=== PATIENT | male | born 1970 | race Caucasian/White ===

== ENCOUNTER 2019-11-24 05:25 | Inpatient (IN) | payer SELFPAY ==
[2019-11-24] MEDS ORDERED: HYDROmorphone 1 MG/ML Syringe IVPUSH STA (05:58)
[2019-11-24] MEDS ORDERED: Ondansetron 4 MG/2 ML SDV IVPUSH ONE (05:58)
[2019-11-24] MEDS ORDERED: Sodium Chloride 0.9% 1,000 ML IV SCH (06:00)
--- NOTE | 2019-11-24 06:05 | EDM.PDOC ---
<Rivas Layne A - Last Filed: 11/24/19 09:17> ED HPI GENERAL MEDICAL PROBLEM - General Chief Complaint: Abdominal Pain Stated Complaint: ABDOMINAL PAIN Time Seen by Provider: 11/24/19 05:43 - Related Data Allergies Allergy/AdvReac Type Severity Reaction Status Date / Time No Known Allergies Allergy Verified 11/24/19 12:41 Home Meds: Home Meds . [No Known Home Meds] 11/24/19 [History] Course - Re-Assessments/Exams Free Text/Narrative Re-Assessment/Exam: 11/24/19 09:17 Dr Harris came to see the patient and he will admit him to the hospital. I have written some bridging orders. Departure - Departure Time of Disposition: :20 Disposition: Admitted As Inpatient 66 Condition: Good Clinical Impression: Retroperitoneal abscess - Discharge Information <Raciel Marshall - Last Filed: 11/24/19 19:36> ED HPI GENERAL MEDICAL PROBLEM - General Source of Information: Reports: Patient History Limitations: Reports: No Limitations - History of Present Illness INITIAL COMMENTS - FREE TEXT/NARRATIVE: Mr. Yanez is a very pleasant 49-year-old gentleman with a past medical history significant for non-Hodgkin lymphoma, initially diagnosed in 2003, status post chemotherapy up until 2005, but with no medical evaluation since, and chronic methamphetamine use, who now presents to the ED stating that he has had 6 months of mild left inguinal discomfort, which developed into a dull, crampy pain of much greater intensity 2 days ago, 11/22/2019. He states that he has had chills, but he has not had a fever. No associated nausea, vomiting, constipation, or diarrhea. His last bowel movement was last night. He reports having a slight cough, but denies having recent dyspnea, chest pain, or palpitations. No prior similar symptoms. Here in the ED, the patient's initial BP is found to be modestly elevated at 168/87, otherwise, he is hemodynamically stable, afebrile, saturating 96% on room air. Other than the above complaints, the patient denies having a recent fever, sore throat, ear pain, nasal or sinus congestion, dyspnea, chest pain, palpitations, nausea, vomiting, constipation, diarrhea, abdominal pain, urinary symptoms, recent weight gain or weight loss, recent bloody bowel movements or black bowel movements, recent joint aches, headaches, or rashes. The patient does not have a PCP. Past Medical History Musculoskeletal History: Reports: Fracture (left tibia) Oncologic (Cancer) History: Reports: Non-Hodgkin's Lymphoma (Dx'd 2003, s/p CTx until 2005, no eval after that) - Infectious Disease History Infectious Disease History: Reports: Hepatitis C (untreated) - Past Surgical History Oncologic Surgical History: Reports: Other (See Below) (Left inguinal LN bx) Social & Family History - Family History Cardiac: Reports: CAD - Tobacco Use Smoking Status *Q: Current Every Day Smoker Years of Tobacco use: 35 Packs/Tins Daily: 0.5 Packs/Tins Daily Comment: Down from 1 ppd - Alcohol Use Alcohol Use History: Yes Alcohol Use Frequency: Socially - Recreational Drug Use Recreational Drug Use: Yes Drug Use in Last 12 Months: Yes Recreational Drug Type: Reports: Cocaine (last smoked, injected 2017), LSD (Acid) (last took 2017), Marijuana/Hashish (last smoked 11/23/2019), Methamphetamine (smokes or injects daily), Psilocybin (Mushrooms) (last took 2017) - Living Situation & Occupation Living situation: Reports: , with Significant Other (Girlfriend) Occupation: Unemployed ED ROS GENERAL - Review of Systems Review Of Systems: Comprehensive ROS is negative, except as noted in HPI. ED EXAM, GI/ABD - Physical Exam Exam: See Below Exam Limited By: No Limitations General Appearance: Alert, WD/WN, Mild Distress (appears uncomfortable) Eyes: Bilateral: Normal Appearance, EOMI Ears: Normal External Exam, Hearing Grossly Normal Nose: Normal Inspection Throat/Mouth: Normal Inspection, Normal Lips, Normal Voice, No Airway Compromise Head: Atraumatic, Normocephalic Neck: Normal Inspection, Full Range of Motion Respiratory/Chest: No Respiratory Distress, Lungs Clear, Normal Breath Sounds, No Accessory Muscle Use Cardiovascular: Normal Peripheral Pulses, Regular Rate, Rhythm, No Edema, No Gallop, No JVD, No Murmur, No Rub GI/Abdominal Exam: Normal Bowel Sounds, Soft, No Organomegaly, No Distention, No Abnormal Bruit, No Mass, Tender (Pain is induced in the left lower quadrant with palpation anywhere in his abdomen, but his left lower quadrant is particularly tender to palpation) (Male) Exam: No: Hernia, Inguinal Lymphadenopathy Rectal (Males) Exam: Deferred Back Exam: Normal Inspection, Full Range of Motion, NT Extremities: Normal Inspection, Normal Range of Motion, No Pedal Edema, Normal Capillary Refill Neurological: Alert, Oriented, Normal Cognition, No Motor/Sensory Deficits Psychiatric: Normal Affect Skin Exam: Warm, Dry, Intact, Normal Color, No Rash Course - Vital Signs Last Recorded V/S: Last Vital Signs Temp 36.9 C 11/24/19 16:38 Pulse 78 11/24/19 16:38 Resp 18 11/24/19 16:38 BP 114/73 11/24/19 16:38 Pulse Ox 98 11/24/19 16:38 - Orders/Labs/Meds Orders: Active Orders 24 hr Category Date Time Status Abdomen Pelvis w Cont [CT] Stat Exams 11/24/19 05:59 Taken Medication Orders Hydrocodone Bitart/Acetaminophen (Conrad 325-5 Mg) 1 - 2 tab PO Q6H PRN PRN Reason: Pain Last Admin: 11/24/19 12:52 Dose: 2 tab Documented by: BOOKER Lactated Ringer's (Ringers, Lactated) 1,000 mls @ 75 mls/hr IV ASDIRECTED [facility] Last Admin: 11/24/19 13:34 Dose: 75 mls/hr Documented by: BOOKER Piperacillin Sod/Tazobactam (Sod 4.5 gm/ Sodium Chloride) 100 mls @ 25 mls/hr IV Q8H DHEERAJ Vancomycin HCl 1.5 gm/ Sodium (Chloride) 500 mls @ 250 mls/hr IV Q12H [facility] Last Admin: 11/24/19 15:08 Dose: 250 mls/hr Documented by: DANK Ondansetron HCl (Zofran) 4 mg IVPUSH Q6H PRN PRN Reason: Nausea/Vomiting Vancomycin HCl (Pharmacy To Dose - Vancomycin) 1 dose .XX Q12HR [facility] Labs: Laboratory Tests 11/24/19 11/24/19 11/24/19 Range/Units 05:45 05:45 06:19 WBC 17.93 H (4.23-9.07) K/mm3 RBC 4.75 (4.63-6.08) M/mm3 Hgb 15.4 (13.7-17.5) gm/dl Hct 45.0 (40.1-51.0) % MCV 94.7 H (79.0-92.2) fl MCH 32.4 H (25.7-32.2) pg MCHC 34.2 (32.2-35.5) g/dl RDW Std Deviation 41.7 (35.1-43.9) fL Plt Count 249 (163-337) K/mm3 MPV 9.7 (9.4-12.3) fl Neutrophils % (Manual) 74 H (40-60) % Band Neutrophils % 0 (0-10) % Lymphocytes % (Manual) 13 L (20-40) % Atypical Lymphs % 1 % Monocytes % (Manual) 7 (2-10) % Eosinophils % (Manual) 5 (0.8-7.0) % Basophils % (Manual) 0 L (0.2-1.2) Platelet Estimate Adequate Anisocytosis 1+ slight RBC Morph Comment Abnormal Sodium 129 L D (136-145) mEq/L Potassium 4.1 (3.5-5.1) mEq/L Chloride 95 L (98-107) mEq/L Carbon Dioxide 25 (21-32) mEq/L Anion Gap 13.1 (5-15) BUN 12 (7-18) mg/dL Creatinine 1.0 (0.7-1.3) mg/dL Est Cr Clr Drug Dosing 105.63 mL/min Estimated GFR (MDRD) > 60 (>60) mL/min BUN/Creatinine Ratio 12.0 L (14-18) Glucose 216 H (74-106) mg/dL Calcium 9.3 (8.5-10.1) mg/dL Total Bilirubin 0.5 (0.2-1.0) mg/dL AST 22 (15-37) U/L ALT 72 H (16-63) U/L Alkaline Phosphatase 72 (46-116) U/L Total Protein 7.6 (6.4-8.2) g/dl Albumin 3.2 L (3.4-5.0) g/dl Globulin 4.4 gm/dL Albumin/Globulin Ratio 0.7 L (1-2) Urine Color (Yellow) Urine Appearance (Clear) Urine pH (5.0-8.0) Ur Specific [place] (1.005-1.030) Urine Protein (Negative) Urine Glucose (UA) (Negative) Urine Ketones (Negative) Urine Occult Blood (Negative) Urine Nitrite (Negative) Urine Bilirubin (Negative) Urine Urobilinogen (0.2-1.0) Ur Leukocyte Esterase (Negative) Urine RBC (0-5) /hpf Urine WBC (0-5) /hpf Ur Squamous Epith Cells (0-5) /hpf Urine Bacteria (FEW) /hpf Urine Mucus (FEW) /hpf COVID-19 (TOMMY) Negative (NEGATIVE) 11/24/19 Range/Units 07:20 WBC (4.23-9.07) K/mm3 RBC (4.63-6.08) M/mm3 Hgb (13.7-17.5) gm/dl Hct (40.1-51.0) % MCV (79.0-92.2) fl MCH (25.7-32.2) pg MCHC (32.2-35.5) g/dl RDW Std Deviation (35.1-43.9) fL Plt Count (163-337) K/mm3 MPV (9.4-12.3) fl Neutrophils % (Manual) (40-60) % Band Neutrophils % (0-10) % Lymphocytes % (Manual) (20-40) % Atypical Lymphs % % Monocytes % (Manual) (2-10) % Eosinophils % (Manual) (0.8-7.0) % Basophils % (Manual) (0.2-1.2) Platelet Estimate Anisocytosis RBC Morph Comment Sodium (136-145) mEq/L Potassium (3.5-5.1) mEq/L Chloride (98-107) mEq/L Carbon Dioxide (21-32) mEq/L Anion Gap (5-15) BUN (7-18) mg/dL Creatinine (0.7-1.3) mg/dL Est Cr Clr Drug Dosing mL/min Estimated GFR (MDRD) (>60) mL/min BUN/Creatinine Ratio (14-18) Glucose (74-106) mg/dL Calcium (8.5-10.1) mg/dL Total Bilirubin (0.2-1.0) mg/dL AST (15-37) U/L ALT (16-63) U/L Alkaline Phosphatase (46-116) U/L Total Protein (6.4-8.2) g/dl Albumin (3.4-5.0) g/dl Globulin gm/dL Albumin/Globulin Ratio (1-2) Urine Color Yellow (Yellow) Urine Appearance Clear (Clear) Urine pH 8.5 H (5.0-8.0) Ur Specific [place] 1.015 (1.005-1.030) Urine Protein Negative (Negative) Urine Glucose (UA) Negative (Negative) Urine Ketones Negative (Negative) Urine Occult Blood Negative (Negative) Urine Nitrite Negative (Negative) Urine Bilirubin Negative (Negative) Urine Urobilinogen 1.0 (0.2-1.0) Ur Leukocyte Esterase Negative (Negative) Urine RBC 0-5 (0-5) /hpf Urine WBC 0-5 (0-5) /hpf Ur Squamous Epith Cells 0-5 (0-5) /hpf Urine Bacteria Few (FEW) /hpf Urine Mucus Few (FEW) /hpf COVID-19 (TOMMY) (NEGATIVE) Meds: Medications Generic Name Dose Route Start Last Admin Trade Name Freq PRN Reason Stop Dose Admin Hydrocodone Bitart/Acetaminophen 1 - 2 tab 11/24/19 12:31 11/24/19 12:52 Conrad 325-5 Mg PO 2 tab Q6H PRN Administration Pain Lactated Ringer's 1,000 mls @ 75 mls/hr 11/24/19 12:30 11/24/19 13:34 Ringers, Lactated IV 75 mls/hr ASDIRECTED DHEERAJ Administration Piperacillin Sod/Tazobactam 100 mls @ 25 mls/hr 11/24/19 21:00 Sod 4.5 gm/ Sodium Chloride IV Q8H DHEERAJ Vancomycin HCl 1.5 gm/ Sodium 500 mls @ 250 mls/hr 11/24/19 13:00 11/24/19 15:08 Chloride IV 250 mls/hr Q12H DHEERAJ Administration Ondansetron HCl 4 mg 11/24/19 12:26 Zofran IVPUSH Q6H PRN Nausea/Vomiting Vancomycin HCl 1 dose 11/24/19 21:00 Pharmacy To Dose - Vancomycin .XX Q12HR DHEERAJ Discontinued Medications Generic Name Dose Route Start Last Admin Trade Name Freq PRN Reason Stop Dose Admin Diatrizoate Meglum/Diatrizoate Sod 120 ml 11/24/19 06:46 11/24/19 07:09 Gastrografin 37% PO 11/24/19 06:47 120 ml ONETIME ONE Administration Hydromorphone HCl 0.5 mg 11/24/19 05:58 11/24/19 06:14 Dilaudid IVPUSH 11/24/19 05:59 0.5 mg ONETIME STA Administration Hydromorphone HCl 0.5 mg 11/24/19 09:14 11/24/19 09:23 Dilaudid IVPUSH 11/24/19 09:15 0.5 mg ONETIME ONE Administration Sodium Chloride 1,000 mls @ 150 mls/hr 11/24/19 06:00 11/24/19 06:14 Normal Saline IV 150 mls/hr ASDIRECTED DHEERAJ Administration Piperacillin Sod/Tazobactam 100 mls @ 200 mls/hr 11/24/19 13:00 11/24/19 12:53 Sod 4.5 gm/ Sodium Chloride IV 11/24/19 13:29 200 mls/hr ONETIME ONE Administration Iopamidol 100 ml 11/24/19 06:46 11/24/19 07:09 Isovue-300 (61%) IVPUSH 11/24/19 06:47 100 ml ONETIME ONE Administration Ondansetron HCl 4 mg 11/24/19 05:58 11/24/19 06:15 Zofran IVPUSH 11/24/19 05:59 4 mg ONETIME ONE Administration Sodium Chloride 10 ml 11/24/19 06:46 11/24/19 07:09 Saline Flush FLUSH 11/24/19 06:47 10 ml ONETIME ONE Administration - Re-Assessments/Exams Free Text/Narrative Re-Assessment/Exam: 11/24/19 06:00 As above, the patient has had mild left inguinal discomfort for the past 6 months, which developed into a dull, crampy pain 2 days ago. His pain is made better or worse depending on his position. While he generally feels ill, he denies any other specific symptoms, such as nausea, vomiting, constipation, diarrhea, or urinary symptoms. He is afebrile. On examination, pain is felt in his left lower quadrant with palpation anywhere on his abdomen, and he has considerable tenderness to palpation of the left lower quadrant itself. I do not appreciate an inguinal hernia. I have ordered a work-up that includes blood work, a urinalysis, and a CT scan of the abdomen and pelvis with oral and IV contrast. Lastly, because COVID-19 can present in such a myriad of different ways, including abdominal pain, and because the patient does not practice any sort of precautionary measures, I have ordered a test for the SARS-CoV-2 virus. In the meantime, the patient will be given IV Dilaudid, IV Zofran, and IV fluid. 11/24/19 07:25 The patient's CBC is remarkable for WBC count elevated at 17.93, but with 0% bandemia. The remainder of his CBC is unremarkable. His CMP is remarkable for a sodium depressed at 129, and a blood glucose elevated at 216. His ALT is mildly elevated at 72, but with an AST normal at 22, and the remainder of his CMP being unremarkable. His test for the SARS-CoV-[address] of the abdomen and pelvis with oral and IV contrast is read by [facility] as "Thick-walled retroperitoneal fluid collection over the anteromedial aspect of the left psoas muscle with surrounding fatty stranding, suggestive of abscess." The patient has not yet provided a urine sample for the urinalysis. 11/24/19 07:[address] Harris at 07:28. He feels that the patient may require IR, however, the infection may be able to be treated with antibiotics alone. He will come by the ED to review the CT scan before making a decision if the patient needs to be transferred or not. 11/24/19 08:35 Dr. Harris has not yet come to the ED. I will turn the patient over to Dr. Layne, for change of shift and determination of disposition. Departure - Discharge Information *PRESCRIPTION DRUG MONITORING PROGRAM REVIEWED*: Not Applicable *COPY OF PRESCRIPTION DRUG MONITORING REPORT IN PATIENT NIRAJ: Not Applicable Sepsis Event Note (ED) - Evaluation Sepsis Screening Result: No Definite Risk - My Orders Last 24 Hours: My Active Orders 11/24/19 05:59 Abdomen Pelvis w Cont [CT] Stat - Assessment/Plan Last 24 Hours: My Active Orders 11/24/19 05:59 Abdomen Pelvis w Cont [CT] Stat
[2019-11-24] MEDS ORDERED: Sodium Chloride 0.9% 10 ML Syringe FLUSH ONE (06:46)
[2019-11-24] MEDS ORDERED: Diatrizoate Meglumine/Diatrizoate Sodium 37% 120 ML Bottle PO ONE (06:46)
[2019-11-24] MEDS ORDERED: Iopamidol 612 MG/ML 100 ML Bottle IVPUSH ONE (06:46)
[2019-11-24] MEDS ORDERED: HYDROmorphone 0.5 MG/0.5 ML Syringe IVPUSH ONE (09:14)
--- NOTE | 2019-11-24 12:09 | PCM.HP.2 ---
H&P History of Present Illness - General Date of Service: 11/24/19 Admit Problem/Dx: Admission Diagnosis/Problem Admission Diagnosis/Problem Retroperitoneal abscess Source of Information: Patient History Limitations: Reports: No Limitations - History of Present Illness Initial Comments - Free Text/Narative: Patient has a history of NHL treated from [id number] but never followed up who presented to the ED with 2 days of left inguinal pain. Patient report feeling a small bump in the left inguina area for 6 months but 2 days ago the pain started, The pain became severe and he presented to the ED. He reports that he has had some night sweats and chills during this time. He is a prior IV drug user with Meth but reports that he stopped injecting 2 yrs ago. Now he smokes ma rijuana and meth daily, last smoked yesterday. He smokes 1/2 PPD, he reports that he used to he a heavy drinker but stopped drinking 3 weeks ago. Last drink was 2 weeks ago. In the ED he was found to have WHC of 17, Ct scan revealed 2x2x5 abscess in the left psoas. My review of CT also reveals enlarged lymph nodes left greater than right. No obvious hernias. Onset of Symptoms: Reports: Gradual Duration of Symptoms: Reports: Day(s): Location: Reports: Abdomen Quality: Reports: Sharp Severity: Severe Improves with: Reports: Immobilization Worsens with: Reports: Movement Associated Symptoms: Reports: Fever/Chills - Related Data Allergies/Adverse Reactions: Allergies Allergy/AdvReac Type Severity Reaction Status Date / Time No Known Allergies Allergy Verified 11/24/19 09:11 Home Medications: Home Meds . [No Known Home Meds] 11/24/19 [History] Past Medical History Musculoskeletal History: Reports: Fracture Oncologic (Cancer) History: Reports: Non-Hodgkin's Lymphoma Other Oncologic History: lymph node removed from [place] for biopsy-pt states it came back "positive-for the nonhodgkin lymphoma" - Infectious Disease History Infectious Disease History: Reports: Hepatitis C - Past Surgical History Endocrine Surgical History: Reports: Other (See Below) Oncologic Surgical History: Reports: Other (See Below) Social & Family History - Family History Family Medical History: Noncontributory Cardiac: Reports: CAD - Tobacco Use Smoking Status *Q: Current Every Day Smoker Years of Tobacco use: 35 Packs/Tins Daily: 0.5 - Caffeine Use Caffeine Use: Reports: Coffee, Tea - Recreational Drug Use Recreational Drug Use: Yes Drug Use in Last 12 Months: Yes Recreational Drug Type: Reports: Marijuana/Hashish, Methamphetamine, Other (see below) Other Recreational Drug Type: hallucinogens Recreational Drug Use Frequency: Daily Recreational Drug Last Use: yesterday - Living Situation & Occupation Living situation: Reports: , with Significant Other (Girlfriend) Occupation: Unemployed H&P Review of Systems - Review of Systems: Review Of Systems: See Below General: Reports: Fever, Chills HEENT: Reports: No Symptoms Pulmonary: Reports: No Symptoms Cardiovascular: Reports: No Symptoms Gastrointestinal: Reports: Abdominal Pain (left inguinal) Genitourinary: Reports: No Symptoms Musculoskeletal: Reports: Leg Pain (left leg pain at hip with active movement) Skin: Reports: No Symptoms Psychiatric: Reports: No Symptoms Exam - Exam Exam: See Below - Vital Signs Vital Signs: Last Vital Signs Temp 98.3 F 11/24/19 05:35 Pulse 81 11/24/19 11:30 Resp 18 11/24/19 11:30 BP 130/80 11/24/19 11:30 Pulse Ox 96 11/24/19 11:30 Weight: 90.038 kg - Exam General: Alert, Oriented, Cooperative Neck: Supple Lungs: Clear to Auscultation, Normal Respiratory Effort Cardiovascular: Regular Rate, Regular Rhythm, Normal S1, Normal S2 GI/Abdominal Exam: Soft, No Organomegaly, No Distention, No Abnormal Bruit, Tender (left inguinal area, there are palpable, tender, mobile subcutaneous structures likely lymph nodes) (Male) Exam: No Hernia Back Exam: Normal Inspection, Full Range of Motion, Other (mild bilateral flank tenderness) - Patient Data Lab Results Last 24 hrs: Laboratory Results - last 24 hr 11/24/19 11/24/19 11/24/19 Range/Units 05:45 05:45 06:19 WBC 17.93 H (4.23-9.07) K/mm3 RBC 4.75 (4.63-6.08) M/mm3 Hgb 15.4 (13.7-17.5) gm/dl Hct 45.0 (40.1-51.0) % MCV 94.7 H (79.0-92.2) fl MCH 32.4 H (25.7-32.2) pg MCHC 34.2 (32.2-35.5) g/dl RDW Std Deviation 41.7 (35.1-43.9) fL Plt Count 249 (163-337) K/mm3 MPV 9.7 (9.4-12.3) fl Neutrophils % (Manual) 74 H (40-60) % Band Neutrophils % 0 (0-10) % Lymphocytes % (Manual) 13 L (20-40) % Atypical Lymphs % 1 % Monocytes % (Manual) 7 (2-10) % Eosinophils % (Manual) 5 (0.8-7.0) % Basophils % (Manual) 0 L (0.2-1.2) Platelet Estimate Adequate Anisocytosis 1+ slight RBC Morph Comment Abnormal Sodium 129 L D (136-145) mEq/L Potassium 4.1 (3.5-5.1) mEq/L Chloride 95 L (98-107) mEq/L Carbon Dioxide 25 (21-32) mEq/L Anion Gap 13.1 (5-15) BUN 12 (7-18) mg/dL Creatinine 1.0 (0.7-1.3) mg/dL Est Cr Clr Drug Dosing 105.63 mL/min Estimated GFR (MDRD) > 60 (>60) mL/min BUN/Creatinine Ratio 12.0 L (14-18) Glucose 216 H (74-106) mg/dL Calcium 9.3 (8.5-10.1) mg/dL Total Bilirubin 0.5 (0.2-1.0) mg/dL AST 22 (15-37) U/L ALT 72 H (16-63) U/L Alkaline Phosphatase 72 (46-116) U/L Total Protein 7.6 (6.4-8.2) g/dl Albumin 3.2 L (3.4-5.0) g/dl Globulin 4.4 gm/dL Albumin/Globulin Ratio 0.7 L (1-2) Urine Color (Yellow) Urine Appearance (Clear) Urine pH (5.0-8.0) Ur Specific [place] (1.005-1.030) Urine Protein (Negative) Urine Glucose (UA) (Negative) Urine Ketones (Negative) Urine Occult Blood (Negative) Urine Nitrite (Negative) Urine Bilirubin (Negative) Urine Urobilinogen (0.2-1.0) Ur Leukocyte Esterase (Negative) Urine RBC (0-5) /hpf Urine WBC (0-5) /hpf Ur Squamous Epith Cells (0-5) /hpf Urine Bacteria (FEW) /hpf Urine Mucus (FEW) /hpf COVID-19 (TOMMY) Negative (NEGATIVE) 11/24/19 Range/Units 07:20 WBC (4.23-9.07) K/mm3 RBC (4.63-6.08) M/mm3 Hgb (13.7-17.5) gm/dl Hct (40.1-51.0) % MCV (79.0-92.2) fl MCH (25.7-32.2) pg MCHC (32.2-35.5) g/dl RDW Std Deviation (35.1-43.9) fL Plt Count (163-337) K/mm3 MPV (9.4-12.3) fl Neutrophils % (Manual) (40-60) % Band Neutrophils % (0-10) % Lymphocytes % (Manual) (20-40) % Atypical Lymphs % % Monocytes % (Manual) (2-10) % Eosinophils % (Manual) (0.8-7.0) % Basophils % (Manual) (0.2-1.2) Platelet Estimate Anisocytosis RBC Morph Comment Sodium (136-145) mEq/L Potassium (3.5-5.1) mEq/L Chloride (98-107) mEq/L Carbon Dioxide (21-32) mEq/L Anion Gap (5-15) BUN (7-18) mg/dL Creatinine (0.7-1.3) mg/dL Est Cr Clr Drug Dosing mL/min Estimated GFR (MDRD) (>60) mL/min BUN/Creatinine Ratio (14-18) Glucose (74-106) mg/dL Calcium (8.5-10.1) mg/dL Total Bilirubin (0.2-1.0) mg/dL AST (15-37) U/L ALT (16-63) U/L Alkaline Phosphatase (46-116) U/L Total Protein (6.4-8.2) g/dl Albumin (3.4-5.0) g/dl Globulin gm/dL Albumin/Globulin Ratio (1-2) Urine Color Yellow (Yellow) Urine Appearance Clear (Clear) Urine pH 8.5 H (5.0-8.0) Ur Specific [place] 1.015 (1.005-1.030) Urine Protein Negative (Negative) Urine Glucose (UA) Negative (Negative) Urine Ketones Negative (Negative) Urine Occult Blood Negative (Negative) Urine Nitrite Negative (Negative) Urine Bilirubin Negative (Negative) Urine Urobilinogen 1.0 (0.2-1.0) Ur Leukocyte Esterase Negative (Negative) Urine RBC 0-5 (0-5) /hpf Urine WBC 0-5 (0-5) /hpf Ur Squamous Epith Cells 0-5 (0-5) /hpf Urine Bacteria Few (FEW) /hpf Urine Mucus Few (FEW) /hpf COVID-19 (TOMMY) (NEGATIVE) Result Diagrams: 11/24/19 05:45 11/24/19 05:45 Sepsis Event Note - Evaluation Sepsis Screening Result: No Definite Risk - Focused Exam Vital Signs: Vital Signs Temp Pulse Resp BP Pulse Ox 11/24/19 11:30 81 18 130/80 96 11/24/19 05:35 98.3 F 94 16 168/87 H 96 Problem List Initiated/Reviewed/Updated: No Orders Last 24hrs: Active Orders 24 hr Category Date Time Status Admission Status [Patient Status] [ADT] Routine ADT 11/24/19 11:03 Active Abdomen Pelvis w Cont [CT] Stat Exams 11/24/19 05:59 Taken Sodium Chloride 0.9% [Normal Saline] 1,000 ml Med 11/24/19 06:00 Active IV ASDIRECTED Medication Orders Sodium Chloride (Normal Saline) 1,000 mls @ 150 mls/hr IV ASDIRECTED DHEERAJ Last Admin: 11/24/19 06:14 Dose: 150 mls/hr Documented by: WILBER Assessment/Plan Comment:: Patient has an RP abscess. Also has enlarged tender left inguinal structures likely lymph nodes. Unclear is these enlarged lymph nodes are related to the left psoas abscess. We will treat the abscess with abx and follow him clinically - Admit to med/surg - IV Vanc and Zosyn - Blood cultures - Daily labs - Reg diet - IVF at 75 cc/hr - Pain control with [place]
[2019-11-24] MEDS ORDERED: Ondansetron 4 MG/2 ML SDV IVPUSH PRN (12:26)
[2019-11-24] MEDS: Acetaminophen/HYDROcodone 325-5 MG Tab PO PRN ×2 (12:52→20:18)
[2019-11-24] MEDS ORDERED: Piperacillin/Tazobactam 4.5 GM in Sodium Chloride 0.9% 100 ML IV ONE (13:00)
[2019-11-24] MEDS: Lactated Ringers 1,000 ML IV SCH (13:34)
[2019-11-24] MEDS: Vancomycin 1.5 GM in Sodium Chloride 0.9% 500 ML IV SCH (15:08)
[2019-11-24] MEDS: Piperacillin/Tazobactam 4.5 GM in Sodium Chloride 0.9% 100 ML IV SCH (20:46)
[2019-11-25] MEDS: Vancomycin 1.5 GM in Sodium Chloride 0.9% 500 ML IV SCH (01:02)
[2019-11-25] MEDS: Lactated Ringers 1,000 ML IV SCH (03:00)
[2019-11-25] MEDS: Acetaminophen/HYDROcodone 325-5 MG Tab PO PRN ×3 (03:00→18:13)
[2019-11-25] MEDS: Piperacillin/Tazobactam 4.5 GM in Sodium Chloride 0.9% 100 ML IV SCH ×3 (05:09→20:34)
[2019-11-25] MEDS: Vancomycin 1 GM, Vancomycin 500 MG in Sodium Chloride 0.9% 500 ML IV SCH ×2 (10:32→17:31)
[2019-11-25] MEDS: Enoxaparin 30 MG/0.3 ML Syringe SUBCUT SCH ×2 (10:54→20:35)
--- NOTE | 2019-11-25 11:22 | CT ---
CT abdomen and pelvis Technique: Multiple axial sections were obtained from above the dome of the diaphragm inferiorly through the pubic symphysis. Delayed images were obtained through the bladder. Reconstructed coronal and sagittal images were obtained. Comparison: No prior CT abdomen or pelvis study is available. Findings: Very slight atelectasis is seen posteriorly within both lung bases. Liver contains no focal parenchymal abnormality. Spleen appears within normal limits. Adrenal glands show no nodule. Pancreas shows no discrete abnormality. Gallbladder contains no calcified gallstones. Kidneys show symmetric contrast enhancement without hydronephrosis or mass. Aorta shows atherosclerotic calcification without aneurysm. No pelvic mass or adenopathy is seen. Appendix is seen which is normal. 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 These appeared to join at the UVJ. No ureteral dilatation is seen. Contrast is noted within the bladder. Low density tubular structure identified within the retroperitoneum. This has craniocaudal length of 5.3 cm with transverse measurement of approximately 2.5 cm and maximum AP dimension of about 2.1 cm. Bone window settings were reviewed. Mild degenerative change is noted within the spine. No acute osseous finding is appreciated. Impression: 1. Tubular low density structure within left side of the retroperitoneum. Tubular structure makes raises the question of thrombophlebitis within the gonadal vein. Other nonspecific retroperitoneal abscess is possible. 2. No other acute finding is seen on CT study of the abdomen and pelvis. Diagnostic code #5 This report was dictated in MDT I agree with preliminary report from [facility], finalized on 11/24/19, 8:20 AM Central Daylight Time
--- NOTE | 2019-11-25 11:22 | PCM.PN ---
- General Info Date of Service: 11/25/19 Admission Dx/Problem (Free Text): Admission Diagnosis/Problem Admission Diagnosis/Problem Retroperitoneal abscess Subjective Update: Patient feels better today. No fevers or chills. He feels like the inguinal pain is starting to improve a bit. He is tolerating diet. Functional Status: Reports: Pain Controlled, Tolerating Diet, Ambulating, Urinating - Review of Systems General: Reports: No Symptoms HEENT: Reports: No Symptoms Pulmonary: Reports: No Symptoms Cardiovascular: Reports: No Symptoms Gastrointestinal: Reports: No Symptoms (inguinal), Abdominal Pain Genitourinary: Reports: No Symptoms Musculoskeletal: Reports: No Symptoms Skin: Reports: No Symptoms Neurological: Reports: No Symptoms - Patient Data Vitals - Most Recent: Last Vital Signs Temp 99.0 F 11/25/19 05:15 Pulse 75 11/25/19 05:15 Resp 16 11/25/19 05:15 BP 133/66 11/25/19 05:15 Pulse Ox 95 11/25/19 05:15 Weight - Most Recent: 90.855 kg I&O - Last 24 Hours: Intake & Output 11/24/19 11/25/19 11/25/19 22:59 06:59 14:59 Intake Total 1940 2141 Output Total 900 Balance 1040 2141 Lab Results Last 24 Hours: Laboratory Results - last 24 hr 11/25/19 11/25/19 Range/Units 04:10 04:10 WBC 15.96 H (4.23-9.07) K/mm3 RBC 4.45 L (4.63-6.08) M/mm3 Hgb 14.3 (13.7-17.5) gm/dl Hct 42.9 (40.1-51.0) % MCV 96.4 H (79.0-92.2) fl MCH 32.1 (25.7-32.2) pg MCHC 33.3 (32.2-35.5) g/dl RDW Std Deviation 42.5 (35.1-43.9) fL Plt Count 227 (163-337) K/mm3 MPV 9.7 (9.4-12.3) fl Neut % (Auto) 76.7 H (34.0-67.9) % Lymph % (Auto) 10.2 L (21.8-53.1) % [place] % (Auto) 10.6 (5.3-12.2) % Eos % (Auto) 2.1 (0.8-7.0) Baso % (Auto) 0.1 (0.1-1.2) % Neut # (Auto) 12.24 H (1.78-5.38) K/mm3 Lymph # (Auto) 1.63 (1.32-3.57) K/mm3 [place] # (Auto) 1.69 H (0.30-0.82) K/mm3 Eos # (Auto) 0.33 (0.04-0.54) K/mm3 Baso # (Auto) 0.02 (0.01-0.08) K/mm3 Manual Slide Review Normal smear Sodium 131 L (136-145) mEq/L Potassium 4.3 (3.5-5.1) mEq/L Chloride 99 (98-107) mEq/L Carbon Dioxide 27 (21-32) mEq/L Anion Gap 9.3 (5-15) BUN 12 (7-18) mg/dL Creatinine 0.9 (0.7-1.3) mg/dL Est Cr Clr Drug Dosing 117.36 mL/min Estimated GFR (MDRD) > 60 (>60) mL/min BUN/Creatinine Ratio 13.3 L (14-18) Glucose 121 H (74-106) mg/dL Calcium 8.7 (8.5-10.1) mg/dL Med Orders - Current: Current Medications Hydrocodone Bitart/Acetaminophen ([place] 325-5 Mg) 1 - 2 tab PO Q6H PRN PRN Reason: Pain Last Admin: 11/25/19 09:11 Dose: 2 tab Documented by: Enoxaparin Sodium (Lovenox) 30 mg SUBCUT Q12HR [facility] Last Admin: 11/25/19 10:54 Dose: 30 mg Documented by: Piperacillin Sod/Tazobactam (Sod 4.5 gm/ Sodium Chloride) 100 mls @ 25 mls/hr IV Q8H [facility] Last Admin: 11/25/19 05:09 Dose: 25 mls/hr Documented by: Vancomycin HCl 1 gm/Vancomycin HCl 500 mg/ Sodium Chloride 500 mls @ 333 mls/hr IV Q8H [facility] Last Admin: 11/25/19 10:32 Dose: 333 mls/hr Documented by: Ondansetron HCl (Zofran) 4 mg IVPUSH Q6H PRN PRN Reason: Nausea/Vomiting Vancomycin HCl (Pharmacy To Dose - Vancomycin) 0 dose .XX ASDIRECTED PRN PRN Reason: RX TO DOSE VANCOMYCIN Discontinued Medications Diatrizoate Meglum/Diatrizoate Sod (Gastrografin 37%) 120 ml PO ONETIME ONE Stop: 11/24/19 06:47 Last Admin: 11/24/19 07:09 Dose: 120 ml Documented by: Hydromorphone HCl (Dilaudid) 0.5 mg IVPUSH ONETIME STA Stop: 11/24/19 05:59 Last Admin: 11/24/19 06:14 Dose: 0.5 mg Documented by: Hydromorphone HCl (Dilaudid) 0.5 mg IVPUSH ONETIME ONE Stop: 11/24/19 09:15 Last Admin: 11/24/19 09:23 Dose: 0.5 mg Documented by: Sodium Chloride (Normal Saline) 1,000 mls @ [facility] Last Admin: 11/24/19 06:14 Dose: 150 mls/hr Documented by: Lactated Ringer's (Ringers, Lactated) 1,000 mls [facility] Last Admin: 11/25/19 03:00 Dose: 75 mls/hr Documented by: Piperacillin Sod/Tazobactam (Sod 4.5 gm/ Sodium Chloride) 100 mls @ 200 mls/hr IV ONETIME ONE Stop: 11/24/19 13:29 Last Admin: 11/24/19 12:53 Dose: 200 mls/hr Documented by: Vancomycin HCl 1.5 gm/ Sodium (Chloride) 500 mls @ 250 mls/hr IV Q12H [facility] Last Admin: 11/25/19 01:02 Dose: 250 mls/hr Documented by: Iopamidol (Isovue-300 (61%)) 100 ml IVPUSH ONETIME ONE Stop: 11/24/19 06:47 Last Admin: 11/24/19 07:09 Dose: 100 ml Documented by: Ondansetron HCl (Zofran) 4 mg IVPUSH ONETIME ONE Stop: 11/24/19 05:59 Last Admin: 11/24/19 06:15 Dose: 4 mg Documented by: Sodium Chloride (Saline Flush) 10 ml FLUSH ONETIME ONE Stop: 11/24/19 06:47 Last Admin: 11/24/19 07:09 Dose: 10 ml Documented by: - Exam General: Alert, Oriented, Cooperative Lungs: Clear to Auscultation, Normal Respiratory Effort Cardiovascular: Regular Rate, Regular Rhythm, No Murmurs GI/Abdominal Exam: Soft, No Organomegaly, No Distention, No Abnormal Bruit, No Mass, Tender (left inguinal area) Sepsis Event Note - Evaluation Sepsis Screening Result: No Definite Risk - Focused Exam Vital Signs: Vital Signs Temp Pulse Resp BP Pulse Ox 11/25/19 05:15 99.0 F 75 16 133/66 95 11/25/19 00:35 98.2 F 70 18 126/75 95 - Problem List Review Problem List Initiated/Reviewed/Updated: No - My Orders Last 24 Hours: My Active Orders 11/24/19 12:15 Blood Culture x2 Reflex Set [OM.PC] Stat 11/24/19 12:34 CULTURE BLOOD [BC] Stat 11/24/19 12:41 CULTURE BLOOD [BC] Stat 11/24/19 Dinner Regular Diet [DIET] 11/24/19 20:08 Code Status [Resuscitation Status] Routine 11/25/19 10:42 Antiembolic Devices [RC] PER UNIT ROUTINE Heat Therapy [OM.PC] Routine SCD [Sequential Compression Device] [OM.PC] Routine 11/25/19 10:45 Enoxaparin [Lovenox] 30 mg SUBCUT Q12HR - Assessment Assessment:: Patient has left RP abscess and tender lymph nodes in the left inguinal area - Plan Plan:: Patient has an RP abscess. Also has enlarged tender left inguinal structures likely lymph nodes. Unclear is these enlarged lymph nodes are related to the le ft psoas abscess. We will treat the abscess with abx and follow him clinically - COntinue IV Vanc and Zosyn - Blood cultures done, awaiting results - Daily labs - Reg diet - Hep well - Lovenox for DVT ppx - Pain control with [place] - Warm compresses to the left inguinal area to help with tenderness
[2019-11-26] MEDS: Acetaminophen/HYDROcodone 325-5 MG Tab PO PRN ×4 (00:37→19:15)
[2019-11-26] MEDS: Vancomycin 1 GM, Vancomycin 500 MG in Sodium Chloride 0.9% 500 ML IV SCH ×3 (03:07→19:15)
[2019-11-26] MEDS: Piperacillin/Tazobactam 4.5 GM in Sodium Chloride 0.9% 100 ML IV SCH ×3 (04:44→21:57)
[2019-11-26] MEDS: Enoxaparin 30 MG/0.3 ML Syringe SUBCUT SCH ×2 (09:19→22:01)
--- NOTE | 2019-11-26 10:44 | PCM.PN ---
- General Info Date of Service: 11/26/19 Admission Dx/Problem (Free Text): Admission Diagnosis/Problem Admission Diagnosis/Problem Retroperitoneal abscess Subjective Update: Patient is itching and anxious today. Wants to get out of the hospital to get "fresh air". His left inguinal pain is much improved. He reports that he feels claustrophobic. No fevers or chills. Functional Status: Reports: Pain Controlled, Tolerating Diet, Ambulating, Urinating - Review of Systems General: Reports: No Symptoms HEENT: Reports: No Symptoms Pulmonary: Reports: No Symptoms Cardiovascular: Reports: No Symptoms Gastrointestinal: Reports: Abdominal Pain Genitourinary: Reports: No Symptoms Musculoskeletal: Reports: No Symptoms Skin: Reports: No Symptoms Neurological: Reports: No Symptoms - Patient Data Vitals - Most Recent: Last Vital Signs Temp 97.9 F 11/26/19 08:20 Pulse 74 11/26/19 08:20 Resp 14 11/26/19 08:20 BP 117/68 11/26/19 08:20 Pulse Ox 95 11/26/19 08:20 Weight - Most Recent: 90.628 kg I&O - Last 24 Hours: Intake & Output 11/25/19 11/26/19 11/26/19 22:59 06:59 14:59 Intake Total 1656 1350 Balance 1656 1350 Lab Results Last 24 Hours: Laboratory Results - last 24 hr 11/26/19 Range/Units 09:38 Vancomycin Trough 14.6 (10.0-20.0) Yefri Results Last 24 Hours: Microbiology 11/24/19 12:41 Aerobic Blood Culture - Preliminary Blood - Venous - Lab Draw NO GROWTH AFTER 1 DAY Anaerobic Blood Culture - Preliminary NO GROWTH AFTER 1 DAY 11/24/19 12:34 Aerobic Blood Culture - Preliminary Blood - Venous NO GROWTH AFTER 1 DAY Anaerobic Blood Culture - Preliminary NO GROWTH AFTER 1 DAY Med Orders - Current: Current Medications Hydrocodone Bitart/Acetaminophen ([place] 325-5 Mg) 1 - 2 tab PO Q6H PRN PRN Reason: Pain Last Admin: 11/26/19 06:42 Dose: 2 tab Documented by: Enoxaparin Sodium (Lovenox) 30 mg SUBCUT Q12HR [facility] Last Admin: 11/26/19 09:19 Dose: 30 mg Documented by: Piperacillin Sod/Tazobactam (Sod 4.5 gm/ Sodium Chloride) 100 mls @ 25 mls/hr IV Q8H [facility] Last Admin: 11/26/19 04:44 Dose: 25 mls/hr Documented by: Vancomycin HCl 1 gm/Vancomycin HCl 500 mg/ Sodium Chloride 500 mls @ 333 mls/hr IV Q8H [facility] Last Admin: 11/26/19 03:07 Dose: 333 mls/hr Documented by: Ondansetron HCl (Zofran) 4 mg IVPUSH Q6H PRN PRN Reason: Nausea/Vomiting Vancomycin HCl (Pharmacy To Dose - Vancomycin) 0 dose .XX ASDIRECTED PRN PRN Reason: RX TO DOSE VANCOMYCIN Discontinued Medications Diatrizoate Meglum/Diatrizoate Sod (Gastrografin 37%) 120 ml PO ONETIME ONE Stop: 11/24/19 06:47 Last Admin: 11/24/19 07:09 Dose: 120 ml Documented by: Hydromorphone HCl (Dilaudid) 0.5 mg IVPUSH ONETIME STA Stop: 11/24/19 05:59 Last Admin: 11/24/19 06:14 Dose: 0.5 mg Documented by: Hydromorphone HCl (Dilaudid) 0.5 mg IVPUSH ONETIME ONE Stop: 11/24/19 09:15 Last Admin: 11/24/19 09:23 Dose: 0.5 mg Documented by: Sodium Chloride (Normal Saline) 1,000 mls @ [facility] Last Admin: 11/24/19 06:14 Dose: 150 mls/hr Documented by: Lactated Ringer's (Ringers, Lactated) 1,000 mls @ 75 [facility]ls[facility] Last Admin: 11/25/19 03:00 Dose: 75 mls/hr Documented by: Piperacillin Sod/Tazobactam (Sod 4.5 gm/ Sodium Chloride) 100 mls @ 200 mls/hr IV ONETIME ONE Stop: 11/24/19 13:29 Last Admin: 11/24/19 12:53 Dose: 200 mls/hr Documented by: Vancomycin HCl 1.5 gm/ Sodium (Chloride) 500 mls @ 250 mls/hr IV Q12H [facility] Last Admin: 11/25/19 01:02 Dose: 250 mls/hr Documented by: Iopamidol (Isovue-300 (61%)) 100 ml IVPUSH ONETIME ONE Stop: 11/24/19 06:47 Last Admin: 11/24/19 07:09 Dose: 100 ml Documented by: Ondansetron HCl (Zofran) 4 mg IVPUSH ONETIME ONE Stop: 11/24/19 05:59 Last Admin: 11/24/19 06:15 Dose: 4 mg Documented by: Sodium Chloride (Saline Flush) 10 ml FLUSH ONETIME ONE Stop: 11/24/19 06:47 Last Admin: 11/24/19 07:09 Dose: 10 ml Documented by: - Exam General: Alert, Oriented, Cooperative Lungs: Clear to Auscultation, Normal Respiratory Effort Cardiovascular: Regular Rate, Regular Rhythm GI/Abdominal Exam: Soft, Non-Tender, No Organomegaly, No Distention, No Abnormal Bruit Sepsis Event Note - Evaluation Sepsis Screening Result: No Definite Risk - Focused Exam Vital Signs: Vital Signs Temp Pulse Resp BP Pulse Ox 11/26/19 08:20 97.9 F 74 14 117/68 95 11/26/19 03:10 98.2 F 60 12 125/75 97 - Problem List Review Problem List Initiated/Reviewed/Updated: No - My Orders Last 24 Hours: My Active Orders 11/25/19 10:42 Antiembolic Devices [RC] PER UNIT ROUTINE Heat Therapy [OM.PC] Routine SCD [Sequential Compression Device] [OM.PC] Routine 11/25/19 10:45 Enoxaparin [Lovenox] 30 mg SUBCUT Q12HR 11/27/19 05:11 BASIC METABOLIC PANEL,BMP [CHEM] AM CBC WITH AUTO DIFF [HEME] AM MAGNESIUM [CHEM] AM PHOSPHORUS [CHEM] AM 11/28/19 05:11 BASIC METABOLIC PANEL,BMP [CHEM] AM CBC WITH AUTO DIFF [HEME] AM MAGNESIUM [CHEM] AM PHOSPHORUS [CHEM] AM 11/29/19 05:11 BASIC METABOLIC PANEL,BMP [CHEM] AM CBC WITH AUTO DIFF [HEME] AM MAGNESIUM [CHEM] AM PHOSPHORUS [CHEM] AM 11/30/19 05:11 BASIC METABOLIC PANEL,BMP [CHEM] AM CBC WITH AUTO DIFF [HEME] AM MAGNESIUM [CHEM] AM PHOSPHORUS [CHEM] AM 12/01/19 05:11 BASIC METABOLIC PANEL,BMP [CHEM] AM CBC WITH AUTO DIFF [HEME] AM MAGNESIUM [CHEM] AM PHOSPHORUS [CHEM] AM - Assessment Assessment:: Patient has left RP abscess and tender lymph nodes in the left inguinal area - Plan Plan:: Patient has an RP abscess. Also has enlarged tender left inguinal structures likely lymph nodes. Unclear is these enlarged lymph nodes are related to the left psoas abscess. We will treat the abscess with abx and follow him clinically - COntinue IV Vanc and Zosyn - Blood cultures done, Negative on day 1. - Daily labs - Reg diet - Hep well - Lovenox for DVT ppx - Pain control with [place] - Warm compresses to the left inguinal area to help with tenderness - If WBC improving tomorrow, will convert to oral meds. I discussed with the patient in detail the treatment plan of IV abx and following WBC. Patient reports that although he is anxious, he may be able to stay one more day.
[2019-11-27] MEDS: Vancomycin 1 GM, Vancomycin 500 MG in Sodium Chloride 0.9% 500 ML IV SCH (01:58)
[2019-11-27] MEDS: Acetaminophen/HYDROcodone 325-5 MG Tab PO PRN (02:03)
[2019-11-27] MEDS ORDERED: Magnesium Hydroxide 400 MG/5 ML Susp 30 ML Cup PO ONE (04:14)
[2019-11-27] MEDS: Piperacillin/Tazobactam 4.5 GM in Sodium Chloride 0.9% 100 ML IV SCH (04:22)
[2019-11-27 07:59] VITALS: BP 153/97; PULSE 61
[2019-11-27] MEDS: Enoxaparin 30 MG/0.3 ML Syringe SUBCUT SCH (08:01)
[2019-11-27] MEDS ORDERED: Amoxicillin/Clavulanate K 875-125 MG Tab PO SCH (09:00)
--- NOTE | 2019-11-27 17:35 | PCM.PN ---
- General Info Date of Service: 11/27/19 Admission Dx/Problem (Free Text): Admission Diagnosis/Problem Admission Diagnosis/Problem Retroperitoneal abscess Subjective Update: Patient doing well. No fevers or chills. Pain much better Functional Status: Reports: Pain Controlled, Tolerating Diet, Ambulating, Urinating - Review of Systems General: Reports: No Symptoms HEENT: Reports: No Symptoms Pulmonary: Reports: No Symptoms Cardiovascular: Reports: No Symptoms Gastrointestinal: Reports: No Symptoms Genitourinary: Reports: No Symptoms Musculoskeletal: Reports: No Symptoms Skin: Reports: No Symptoms Neurological: Reports: No Symptoms Psychiatric: Reports: No Symptoms - Patient Data Vitals - Most Recent: Last Vital Signs Temp 97.5 F 11/27/19 07:43 Pulse 61 11/27/19 07:43 Resp 20 11/27/19 07:43 BP 153/97 H 11/27/19 07:43 Pulse Ox 100 11/27/19 07:43 Weight - Most Recent: 90.401 kg I&O - Last 24 Hours: Intake & Output 11/27/19 11/27/19 11/27/19 06:59 14:59 22:59 Intake Total 2020 720 Balance 2020 720 Lab Results Last 24 Hours: Laboratory Results - last 24 hr 11/27/19 11/27/19 Range/Units 04:51 04:51 WBC 13.04 H (4.23-9.07) K/mm3 RBC 4.27 L (4.63-6.08) M/mm3 Hgb 13.8 (13.7-17.5) gm/dl Hct 41.0 (40.1-51.0) % MCV 96.0 H (79.0-92.2) fl MCH 32.3 H (25.7-32.2) pg MCHC 33.7 (32.2-35.5) g/dl RDW Std Deviation 40.6 (35.1-43.9) fL Plt Count 275 (163-337) K/mm3 MPV 9.9 (9.4-12.3) fl Neut % (Auto) 71.5 H (34.0-67.9) % Lymph % (Auto) 12.2 L (21.8-53.1) % [place] % (Auto) 12.9 H (5.3-12.2) % Eos % (Auto) 2.6 (0.8-7.0) Baso % (Auto) 0.4 (0.1-1.2) % Neut # (Auto) 9.33 H (1.78-5.38) K/mm3 Lymph # (Auto) 1.59 (1.32-3.57) K/mm3 [place] # (Auto) 1.68 H (0.30-0.82) K/mm3 Eos # (Auto) 0.34 (0.04-0.54) K/mm3 Baso # (Auto) 0.05 (0.01-0.08) K/mm3 Manual Slide Review Abnormal smear Sodium 142 D (136-145) mEq/L Potassium 4.0 (3.5-5.1) mEq/L Chloride 104 (98-107) mEq/L Carbon Dioxide 30 (21-32) mEq/L Anion Gap 12.0 (5-15) BUN 12 (7-18) mg/dL Creatinine 1.0 (0.7-1.3) mg/dL Est Cr Clr Drug Dosing 105.63 mL/min Estimated GFR (MDRD) > 60 (>60) mL/min BUN/Creatinine Ratio 12.0 L (14-18) Glucose 131 H (74-106) mg/dL Calcium 8.9 (8.5-10.1) mg/dL Phosphorus 3.4 (2.6-4.7) mg/dL Magnesium 1.9 (1.8-2.4) mg/dl Yefri Results Last 24 Hours: Microbiology 11/24/19 12:41 Aerobic Blood Culture - Preliminary Blood - Venous - Lab Draw NO GROWTH AFTER 3 DAYS Anaerobic Blood Culture - Preliminary NO GROWTH AFTER 3 DAYS 11/24/19 12:34 Aerobic Blood Culture - Preliminary Blood - Venous NO GROWTH AFTER 3 DAYS Anaerobic Blood Culture - Preliminary NO GROWTH AFTER 3 DAYS Med Orders - Current: Current Medications Discontinued Medications Hydrocodone Bitart/Acetaminophen ([place] 325-5 Mg) 1 - 2 tab PO Q6H PRN PRN Reason: Pain Last Admin: 11/27/19 02:03 Dose: 2 tab Documented by: Amoxicillin/Clavulanate Potassium (Augmentin 875 Mg/125 Mg) 1 tab PO Q12HR [facility] Last Admin: 11/27/19 08:01 Dose: 1 tab Documented by: Diatrizoate Meglum/Diatrizoate Sod (Gastrografin 37%) 120 ml PO ONETIME ONE Stop: 11/24/19 06:47 Last Admin: 11/24/19 07:09 Dose: 120 ml Documented by: Enoxaparin Sodium (Lovenox) 30 mg SUBCUT Q12HR [facility] Last Admin: 11/27/19 08:01 Dose: 30 mg Documented by: Hydromorphone HCl (Dilaudid) 0.5 mg IVPUSH ONETIME STA Stop: 11/24/19 05:59 Last Admin: 11/24/19 06:14 Dose: 0.5 mg Documented by: Hydromorphone HCl (Dilaudid) 0.5 mg IVPUSH ONETIME ONE Stop: 11/24/19 09:15 Last Admin: 11/24/19 09:23 Dose: 0.5 mg Documented by: Sodium Chloride (Normal Saline) 1,000 mls @ 150 mls/hr IV ASD[facility] Last Admin: 11/24/19 06:14 Dose: 150 mls/hr Documented by: Lactated Ringer's (Ringers, Lactated) 1,000 mls @ 75 mls/hr IV ASD[facility]RECTED [facility] Last Admin: 11/25/19 03:00 Dose: 75 mls/hr Documented by: Piperacillin Sod/Tazobactam (Sod 4.5 gm/ Sodium Chloride) 100 mls @ 200 mls/hr IV ONETIME ONE Stop: 11/24/19 13:29 Last Admin: 11/24/19 12:53 Dose: 200 mls/hr Documented by: Piperacillin Sod/Tazobactam (Sod 4.5 gm/ Sodium Chloride) 100 mls @ 25 mls/hr IV Q8H [facility] Last Admin: 11/27/19 04:22 Dose: 25 mls/hr Documented by: Vancomycin HCl 1.5 gm/ Sodium (Chloride) 500 mls @ 250 mls/hr IV Q12H [facility] Last Admin: 11/25/19 01:02 Dose: 250 mls/hr Documented by: Vancomycin HCl 1 gm/Vancomycin HCl 500 mg/ Sodium Chloride 500 mls @ 333 mls/hr IV Q8H [facility] Last Admin: 11/27/19 01:58 Dose: 333 mls/hr Documented by: Iopamidol (Isovue-300 (61%)) 100 ml IVPUSH ONETIME ONE Stop: 11/24/19 06:47 Last Admin: 11/24/19 07:09 Dose: 100 ml Documented by: Magnesium Hydroxide (Milk Of Magnesia) 30 ml PO ONETIME ONE Stop: 11/27/19 04:15 Last Admin: 11/27/19 04:21 Dose: 30 ml Documented by: Ondansetron HCl (Zofran) 4 mg IVPUSH ONETIME ONE Stop: 11/24/19 05:59 Last Admin: 11/24/19 06:15 Dose: 4 mg Documented by: Ondansetron HCl (Zofran) 4 mg IVPUSH Q6H PRN PRN Reason: Nausea/Vomiting Sodium Chloride (Saline Flush) 10 ml FLUSH ONETIME ONE Stop: 11/24/19 06:47 Last Admin: 11/24/19 07:09 Dose: 10 ml Documented by: Vancomycin HCl (Pharmacy To Dose - Vancomycin) 0 dose .XX ASDIRECTED PRN PRN Reason: RX TO DOSE VANCOMYCIN - Exam General: Alert, Oriented, Cooperative Cardiovascular: Regular Rate, Regular Rhythm, No Murmurs GI/Abdominal Exam: Soft, Non-Tender, No Organomegaly, No Distention Sepsis Event Note - Evaluation Sepsis Screening Result: No Definite Risk - Focused Exam Vital Signs: Vital Signs Temp Pulse Resp BP Pulse Ox 11/27/19 07:43 97.5 F 61 20 153/97 H 100 - Problem List Review Problem List Initiated/Reviewed/Updated: No - Assessment Assessment:: Patient has left RP abscess and tender lymph nodes in the left inguinal area - Plan Plan:: Patient has an RP abscess. Also has enlarged tender left inguinal structures likely lymph nodes. Unclear is these enlarged lymph nodes are related to the left psoas abscess. We will treat the abscess with abx and follow him clinically - Convert to PO antibiotics - Augmentin - cultures negative to date - patient can be discharged with follow up in 1 week.
--- NOTE | 2019-11-27 17:38 | PCM.DCSUM1 ---
Discharge Summary - Hospital Course Free Text/Narrative:: patient presented with left inguinal pain. He was found to have tender lymph nodes in the left inguinal area ad well as left psoas abscess. He was treated with IV abx and WBC trended down. He will be discharged home and follow up with Dr. Harris in 2 weeks. Diagnosis: Stroke: No - Discharge Data Discharge Date: 11/27/19 Discharge Disposition: Home, Self-Care 01 Condition: Good - Referral to Home Health Primary Care Physician: PCP None - Patient Instructions Diet: Regular Diet as Tolerated Activity: As Tolerated Driving: May Drive Today Showering/Bathing: May Shower Notify Provider of: Fever, Increased Pain, Swelling and Redness - Discharge Plan *PRESCRIPTION DRUG MONITORING PROGRAM REVIEWED*: Not Applicable *COPY OF PRESCRIPTION DRUG MONITORING REPORT IN PATIENT NIRAJ: Not Applicable Prescriptions/Med Rec: Amoxicillin/Clavulanate K [Augmentin 875-125 MG] 1 tab PO Q12HR 10 Days #20 tablet Home Medications: Home Meds Amoxicillin/Clavulanate K [Augmentin 875-125 MG] 1 tab PO Q12HR 10 Days #20 tablet 11/27/19 [Rx] Oxygen Therapy Mode: Room Air Patient Handouts: Amoxicillin; Clavulanic Acid tablets, Sepsis, Diagnosis, Adult, Steps to Quit Smoking Referrals: Bev Michele MD [Ordering Only Provider] - 12/11/19 1:15 pm (Please arrive 15 minutes prior to appointment.) Paty Harris MD [Physician] - 12/05/19 2:00 pm (Follow up on 12/05/2019 at 2:00pm, arrive at 1:50pm.) - Discharge Summary/Plan Comment DC Time >30 min.: No - General Info Date of Service: 11/27/19 Admission Dx/Problem (Free Text: Admission Diagnosis/Problem Admission Diagnosis/Problem Retroperitoneal abscess Subjective Update: DOing well. Pain much improved, tolerating diet, no fevers or chills. Functional Status: Reports: Pain Controlled, Tolerating Diet, Ambulating, Urinating - Review of Systems General: Reports: No Symptoms HEENT: Reports: No Symptoms Pulmonary: Reports: No Symptoms Cardiovascular: Reports: No Symptoms Gastrointestinal: Reports: No Symptoms Genitourinary: Reports: No Symptoms Musculoskeletal: Reports: No Symptoms Skin: Reports: No Symptoms Neurological: Reports: No Symptoms Psychiatric: Reports: No Symptoms - Patient Data Vitals - Most Recent: Last Vital Signs Temp 97.5 F 11/27/19 07:43 Pulse 61 11/27/19 07:43 Resp 20 11/27/19 07:43 BP 153/97 H 11/27/19 07:43 Pulse Ox 100 11/27/19 07:43 Weight - Most Recent: 90.401 kg I&O - Last 24 hours: Intake & Output 11/27/19 11/27/19 11/27/19 06:59 14:59 22:59 Intake Total 2019 Balance 2019 Lab Results - Last 24 hrs: Laboratory Results - last 24 hr 11/27/19 11/27/19 Range/Units 04:51 04:51 WBC 13.04 H (4.23-9.07) K/mm3 RBC 4.27 L (4.63-6.08) M/mm3 Hgb 13.8 (13.7-17.5) gm/dl Hct 41.0 (40.1-51.0) % MCV 96.0 H (79.0-92.2) fl MCH 32.3 H (25.7-32.2) pg MCHC 33.7 (32.2-35.5) g/dl RDW Std Deviation 40.6 (35.1-43.9) fL Plt Count 275 (163-337) K/mm3 MPV 9.9 (9.4-12.3) fl Neut % (Auto) 71.5 H (34.0-67.9) % Lymph % (Auto) 12.2 L (21.8-53.1) % Hutchinson % (Auto) 12.9 H (5.3-12.2) % Eos % (Auto) 2.6 (0.8-7.0) Baso % (Auto) 0.4 (0.1-1.2) % Neut # (Auto) 9.33 H (1.78-5.38) K/mm3 Lymph # (Auto) 1.59 (1.32-3.57) K/mm3 Hutchinson # (Auto) 1.68 H (0.30-0.82) K/mm3 Eos # (Auto) 0.34 (0.04-0.54) K/mm3 Baso # (Auto) 0.05 (0.01-0.08) K/mm3 Manual Slide Review Abnormal smear Sodium 142 D (136-145) mEq/L Potassium 4.0 (3.5-5.1) mEq/L Chloride 104 (98-107) mEq/L Carbon Dioxide 30 (21-32) mEq/L Anion Gap 12.0 (5-15) BUN 12 (7-18) mg/dL Creatinine 1.0 (0.7-1.3) mg/dL Est Cr Clr Drug Dosing 105.63 mL/min Estimated GFR (MDRD) > 60 (>60) mL/min BUN/Creatinine Ratio 12.0 L (14-18) Glucose 131 H (74-106) mg/dL Calcium 8.9 (8.5-10.1) mg/dL Phosphorus 3.4 (2.6-4.7) mg/dL Magnesium 1.9 (1.8-2.4) mg/dl NICHOLAS Results - Last 24 hrs: Microbiology 11/24/19 12:41 Aerobic Blood Culture - Preliminary Blood - Venous - Lab Draw NO GROWTH AFTER 3 DAYS Anaerobic Blood Culture - Preliminary NO GROWTH AFTER 3 DAYS 11/24/19 12:34 Aerobic Blood Culture - Preliminary Blood - Venous NO GROWTH AFTER 3 DAYS Anaerobic Blood Culture - Preliminary NO GROWTH AFTER 3 DAYS Med Orders - Current: Current Medications Discontinued Medications Hydrocodone Bitart/Acetaminophen (Ellery 325-5 Mg) 1 - 2 tab PO Q6H PRN PRN Reason: Pain Last Admin: 11/27/19 02:03 Dose: 2 tab Documented by: Amoxicillin/Clavulanate Potassium (Augmentin 875 Mg/125 Mg) 1 tab PO Q12HR [facility] Last Admin: 11/27/19 08:01 Dose: 1 tab Documented by: Diatrizoate Meglum/Diatrizoate Sod (Gastrografin 37%) 120 ml PO ONETIME ONE Stop: 11/24/19 06:47 Last Admin: 11/24/19 07:09 Dose: 120 ml Documented by: Enoxaparin Sodium (Lovenox) 30 mg SUBCUT Q12HR [facility] Last Admin: 11/27/19 08:01 Dose: 30 mg Documented by: Hydromorphone HCl (Dilaudid) 0.5 mg IVPUSH ONETIME STA Stop: 11/24/19 05:59 Last Admin: 11/24/19 06:14 Dose: 0.5 mg Documented by: Hydromorphone HCl (Dilaudid) 0.5 mg IVPUSH ONETIME ONE Stop: 11/24/19 09:15 Last Admin: 11/24/19 09:23 Dose: 0.5 mg Documented by: Sodium Chloride (Normal Saline) 1,000 mls @ 150 mls/hr IV ASDIRECTED [facility] Last Admin: 11/24/19 06:14 Dose: 150 mls/hr Documented by: Lactated Ringer's (Ringers, Lactated) 1,000 mls @ 75 mls/hr IV ASDIRECTED [facility] Last Admin: 11/25/19 03:00 Dose: 75 mls/hr Documented by: Piperacillin Sod/Tazobactam (Sod 4.5 gm/ Sodium Chloride) 100 mls @ 200 mls/hr IV ONETIME ONE Stop: 11/24/19 13:29 Last Admin: 11/24/19 12:53 Dose: 200 mls/hr Documented by: Piperacillin Sod/Tazobactam (Sod 4.5 gm/ Sodium Chloride) 100 mls @ 25 mls/hr IV Q8H [facility] Last Admin: 11/27/19 04:22 Dose: 25 mls/hr Documented by: Vancomycin HCl 1.5 gm/ Sodium (Chloride) 500 mls @ 250 mls/hr IV Q12H [facility] Last Admin: 11/25/19 01:02 Dose: 250 mls/hr Documented by: Vancomycin HCl 1 gm/Vancomycin HCl 500 mg/ Sodium Chloride 500 mls @ 333 mls/hr IV Q8H [facility] Last Admin: 11/27/19 01:58 Dose: 333 mls/hr Documented by: Iopamidol (Isovue-300 (61%)) 100 ml IVPUSH ONETIME ONE Stop: 11/24/19 06:47 Last Admin: 11/24/19 07:09 Dose: 100 ml Documented by: Magnesium Hydroxide (Milk Of Magnesia) 30 ml PO ONETIME ONE Stop: 11/27/19 04:15 Last Admin: 11/27/19 04:21 Dose: 30 ml Documented by: Ondansetron HCl (Zofran) 4 mg IVPUSH ONETIME ONE Stop: 11/24/19 05:59 Last Admin: 11/24/19 06:15 Dose: 4 mg Documented by: Ondansetron HCl (Zofran) 4 mg IVPUSH Q6H PRN PRN Reason: Nausea/Vomiting Sodium Chloride (Saline Flush) 10 ml FLUSH ONETIME ONE Stop: 11/24/19 06:47 Last Admin: 11/24/19 07:09 Dose: 10 ml Documented by: Vancomycin HCl (Pharmacy To Dose - Vancomycin) 0 dose .XX ASDIRECTED PRN PRN Reason: RX TO DOSE VANCOMYCIN - Exam General: Reports: Alert, Oriented, Cooperative Lungs: Reports: Normal Respiratory Effort Cardiovascular: Reports: Regular Rate, Regular Rhythm GI/Abdominal Exam: Soft, Non-Tender, No Organomegaly, No Distention, No Abnormal Bruit
== END 2019-11-27 10:46 | disposition home or self-care (01) | DRG 373 ==
LOC: JD.ED 05:25 → JD.MS 11:03
PROVIDERS: ADMIT Surgery; ATTEND Surgery
DX: K68.12 Psoas muscle abscess (principal); F17.210 Nicotine dependence, cigarettes, uncomplicated; Z85.72 Personal history of non-Hodgkin lymphomas; Z20.828 Contact with and (suspected) exposure to other viral communicable diseases
CPT/HCPCS: 36415; 74177; 74177-26; 80048; 80053; 80202; 81001; 83735; 84100; 85007; 85025; 85027; 87040; 96361; 96374; 96375; 96376; 99285; 99285-25; A9270-GY; J1170; J1650; J2405; J2543; J3370; J7030; J7040; J7050; J7120; Q9963; Q9967; U0002

== ENCOUNTER 2020-03-13 14:30 | Emergency (ER) | payer SELFPAY ==
[2020-03-13 14:42] VITALS: BP 151/108; PULSE 115
[2020-03-13] MEDS ORDERED: HYDROmorphone 1 MG/ML Syringe IM ONE (14:48)
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
--- NOTE | 2020-03-13 17:55 | CR ---
Right tibia and fibula: 2 views of the right tibia and fibula were obtained. Comparison: No prior right tibia or fibula study is available. Findings: Small bony density off the anterior and distal talus is seen which is well corticated and old. Small plantar spur is noted. Minimal spur at the attachment of the Achilles tendon and calcaneus is noted. No acute fracture, dislocation or other bony abnormality is appreciated. Impression: 1. Several chronic findings as noted above. 2. Nothing acute is seen on right tibia and fibula study. Diagnostic code #2
== END 2020-03-13 16:10 | disposition home or self-care (01) ==
LOC: JD.ED 14:30
DX: S80.11XA Contusion of right lower leg, initial encounter (principal); F17.210 Nicotine dependence, cigarettes, uncomplicated; W21.11XA Struck by baseball bat, initial encounter
CPT/HCPCS: 73590; 96372; 99283; J1170